=== PATIENT | female | born 1955 | race African-American/Black ===

== ENCOUNTER 2018-03-25 05:12 | Inpatient (IN) ==
[2018-03-25] MEDS ORDERED: Metoprolol Tartrate 25 MG Tablet PO SCH (05:45)
[2018-03-25] MEDS ORDERED: Chlorhexidine Gluconate 2% 1 Pack (2 Cloths) TOPICAL SCH (05:45)
[2018-03-25] MEDS ORDERED: Sodium Chlor 0.9% Inj 500 ML IV.SIG SCH (06:00)
[2018-03-25] MEDS ORDERED: ceFAZolin 2 GM Premix Inj 2 GM/50 ML PIGGYBACK IV.SIG ONE (06:44)
[2018-03-25] MEDS ORDERED: Bupivacaine PF 0.5% Inj 30 ML Vial ONE (06:46)
[2018-03-25] MEDS ORDERED: fentaNYL Citrate Inj 250 MCG/5 ML Ampul ONE (08:55)
[2018-03-25] MEDS ORDERED: Acetaminophen 325 MG Tablet PO PRN (09:32)
[2018-03-25] MEDS ORDERED: Bisacodyl 10 MG Supp RECTAL PRN (09:32)
[2018-03-25] MEDS ORDERED: Post-op Orders (for Pharmacy) OTHER STA (09:32)
--- NOTE | 2018-03-25 09:46 | P.OP ---
Date of procedure: 03/25/18 Anesthesia: GETA Surgeon: Treva Jolley MD Operation and Findings: PREOPERATIVE DIAGNOSES 1. Right upper lobe lung infiltrative mass 2. Pneumonia 3. Diabetes mellitus POSTOPERATIVE DIAGNOSES Same SURGICAL PROCEDURE 1. Right Video-Assisted Thoracoscopic Surgery (VATS). 2. Wedge biopsy of right upper lobe lung mass 3. Intercostal Nerve Block SURGEON Treva Jolley MD UNDERGROUND MINE SUPERINTENDENT Citlalli Lee [facility] ANESTHESIA General double lumen endotracheal. ROAD MACHINE OPERATOR TAHMINA Beck MD PREPARATION ChloraPrep. COUNTS Needle, sponge, and instrument counts are correct. DRAINS One 28 Fr chest tube. COMPLICATIONS None. INDICATIONS The patient is a 62 yo female with a right upper lobe pneumonia and persistent infiltrative mass, presenting for surgical diagnostic procedure. DESCRIPTION OF PROCEDURE The patient was brought to the operating room and placed supine on the OR table. Following the induction of adequate general double lumen endotracheal anesthesia and placement of appropriate monitoring devices, the patient was placed in the left lateral decubitus position. The right chest and surrounding areas were then prepped and draped in a standard sterile fashion. A 5 mm camera port was introduced into the 7th intercostal space in mid axillary line, and the camera introduced. A second 5 mm port was then placed anteriorly under direct visual guidance, and similarly one was placed posteriorly. Exploration of the chest revealed a very friable, bullous and infiltrative mass in the anterior segment of the right upper lobe. No additional pathology was identified. The mass was grasped and a wedge biopsy performed using the surgical stapler. Frozen section analysis was consistent with a benign pathology. The mass appeared to have fatty infiltrates with an associated proliferative inflammatory response. No malignant cells were identified. At this point the closure was undertaken. The anterior port was removed and a 28 Fr chest tube was placed in the pleural space. This was maintained in place with a nonabsorbable suture. All of the entry sites were injected with Marcaine 0.5%. Following confirmation of the drain in the proper place, the incisions were closed with 2 layers. The chest drain was attached to a suction device, and sterile dressing applied. Intercostal nerve block was performed using Marcaine solution. The patient tolerated the procedure well and was extubated and transferred to the recovery room in stable condition.
[2018-03-25] MEDS ORDERED: Sugammadex Inj 200 MG/2 ML Vial IV.PUSH ONE (09:57)
[2018-03-25] MEDS ORDERED: fentaNYL Citrate Inj 100 MCG/2 ML Ampul ONE (10:15)
[2018-03-25] MEDS ORDERED: *Meperidine Inj 25 MG/ML Vial PERIprocedural Use ONLY ONE (10:27)
[2018-03-25] MEDS ORDERED: Ketorolac Inj 30 MG/ML (IVP) Vial ONE (10:28)
--- NOTE | 2018-03-25 10:51 | XR ---
EXAM DATE: 03/25/2018 10:47 AM EDT AGE/SEX: 62 years / Female INDICATIONS: Post op thoracotomy. CLINICAL DATA: This is the patient's initial encounter. Patient reports that signs and symptoms have been present for 1 day and indicates a pain score of 10/10. MEDICAL/SURGICAL HISTORY: None. . Chest tube. COMPARISON: No prior exams available for comparison. FINDINGS: Right apical chest tube in place without significant pneumothorax. Right upper lobe paratracheal mass like consolidation. Cardiomegaly saw contours are within normal limits. Bony thorax is grossly intact . CONCLUSION: 1. Right apical chest tube in place without significant pneumothorax. 2. Right upper lobe paratracheal masslike consolidation. Electronically signed by: Roque Rodriguez MD 03/25/2018 10:49 AM EDT
[2018-03-25] MEDS ORDERED: Glycopyrrolate Inj 1 MG/5 ML Syringe IV.PUSH ONE (12:00)
[2018-03-25] MEDS ORDERED: Neostigmine Inj 5 MG/5 ML Syringe IV.PUSH ONE (12:00)
[2018-03-25] MEDS ORDERED: Labetalol HCl Inj 100 MG/20 ML Vial IV.CONT ONE (12:00)
[2018-03-25] MEDS ORDERED: Lidocaine PF 1% Inj 5 ML Syringe INFILTRATN ONE (12:00)
[2018-03-25] MEDS ORDERED: *morphine SULFATE 4 MG/ML PERIprocedure ONLY ONE ×3 (12:11→14:54)
[2018-03-25] MEDS: Ketorolac Inj 30 MG/ML (IVP) Vial IV.PUSH SCH ×3 (13:50→23:13)
[2018-03-25] MEDS: Methocarbamol 500 MG Tablet PO SCH ×3 (13:53→21:26)
[2018-03-25] MEDS: Gabapentin 300 MG Capsule PO SCH ×2 (13:53→19:24)
--- NOTE | 2018-03-25 15:03 | P.PNCV ---
- Note Subjective/Hospital Course: 62/ female initially presented with cough and chills in November . Workup included CXR, Chest CT , BX demonstrated a large infiltration right upper lobe, bx nop malignancy . Area of concern persists on CT PMH: anxiety, DM HLP, HTN pt electively admitted surgery 03/25 1. Right Video-Assisted Thoracoscopic Surgery (VATS). 2. Wedge biopsy of right upper lobe lung mass 3. Intercostal Nerve Block Objective: Vital Signs - 24 hr 03/25/18 06:16 03/25/18 10:06 03/25/18 10:15 Temperature 98.2 F 97.4 F L Pulse Rate 70 84 73 Respiratory Rate 18 14 18 Blood Pressure 157/85 H 146/96 H 173/91 H Pulse Oximetry 96 98 98 03/25/18 10:30 03/25/18 10:45 03/25/18 11:00 Temperature Pulse Rate 66 66 65 Respiratory Rate 15 12 12 Blood Pressure 168/96 H 148/80 H 139/85 Pulse Oximetry 98 96 96 03/25/18 12:00 03/25/18 13:00 03/25/18 13:46 Temperature Pulse Rate 71 72 Respiratory Rate 12 13 Blood Pressure 138/76 130/73 Pulse Oximetry 95 97 96 Labs: Laboratory Results - last 12 hr 03/25/18 03/25/18 03/25/18 06:10 06:45 10:50 POC Glucose 250 H Blood Type B Positive Blood Type Recheck Required Antibody Screen Negative MTS Gel Crossmatch See Detail
[2018-03-25] MEDS: Mirtazapine 15 MG Tablet PO SCH (21:25)
[2018-03-25] MEDS: Senna/Docusate Sodium 8.6/50 MG Tablet PO SCH (21:25)
[2018-03-25] MEDS: Latanoprost 0.005% Opth Drops 2.5 ML Bottle EACH EYE SCH (21:27)
[2018-03-26 04:21] LABS: Baso % (Auto) 0.4 % (0.0-2.0); Hematocrit 39.6 % (35.0-46.0); Hemoglobin 12.5 gm/dL (11.6-15.3); Lymph # (Auto) 1.8 th/mm3 (1.0-4.8); Lymph % (Auto) 15.2 % (9.0-44.0); Mean Corpuscular HGB Conc 31.5 % (32.0-36.0); Mean Corpuscular Hemoglobin 23.2 pg (27.0-34.0); Mean Corpuscular Volume 73.7 fL (80.0-100.0); Mean Platelet Volume 8.8 fL (7.0-11.0); Mono # (Auto) 0.9 th/mm3 (0.0-0.9); Mono % (Auto) 7.9 % (0.0-8.0); Neut # (Auto) 8.8 th/mm3 (1.8-7.7); Neut % (Auto) 76.5 % (16.0-70.0); Platelet Count 297 th/mm3 (150-450); Red Blood Count 5.38 mil/mm3 (4.00-5.30); Red Cell Distribution Width 16.3 % (11.6-17.2); White Blood Count 11.6 th/mm3 (4.0-11.0)
[2018-03-26 04:38] LABS: Calcium 8.9 mg/dL (8.5-10.1); Potassium 4.1 meq/L (3.5-5.1)
[2018-03-26] MEDS: Ketorolac Inj 30 MG/ML (IVP) Vial IV.PUSH SCH (06:09)
[2018-03-26] MEDS: Atenolol 25 MG Tablet PO SCH (08:23)
[2018-03-26] MEDS: Gabapentin 300 MG Capsule PO SCH ×3 (08:24→21:30)
[2018-03-26] MEDS: Enoxaparin Inj 30 MG/0.3 ML Syringe SQ SCH (08:25)
[2018-03-26] MEDS: Methocarbamol 500 MG Tablet PO SCH ×4 (08:26→21:30)
[2018-03-26] MEDS: Senna/Docusate Sodium 8.6/50 MG Tablet PO SCH ×2 (08:27→21:30)
[2018-03-26 08:43] VITALS: RESP 16
[2018-03-26] MEDS ORDERED: EMPAGLIFLOZIN 25 MG PO SCH (09:00)
[2018-03-26] MEDS ORDERED: Ezetimibe 10 MG Tablet PO SCH ×2 (09:00→18:00)
--- NOTE | 2018-03-26 09:54 | XR ---
EXAM DATE: 03/26/2018 9:46 AM EDT AGE/SEX: 62 years / Female INDICATIONS: Post op VATS CLINICAL DATA: This is the patient's initial encounter. Patient reports that signs and symptoms have been present for 2 days and indicates a pain score of 0/10. MEDICAL/SURGICAL HISTORY: . mitral valve prolapse . thoracotomy, chest tube COMPARISON: C, CHEST 1V SINGLE AP, 03/25/2018. . FINDINGS: Stable right apical chest tube in place. No significant pneumothorax. Redemonstration of right suprah ilar mass with platelike atelectasis at the left lung base. Cardiomediastinal contours are stable. Re mainder of the exam is unchanged. CONCLUSION: 1. Stable right apical chest tube without significant pneumothorax. 2. Redemonstration of right suprahilar mass. 3. Stable left lower lobe atelectasis. Electronically signed by: Roque Rodriguez MD 03/26/2018 9:53 AM EDT
[2018-03-26] MEDS ORDERED: Morphine Sulfate Inj 2 MG/ML Vial IV.PUSH ONE (09:58)
[2018-03-26] MEDS: hydroCHLOROthiazide 25 MG Tablet PO SCH (10:33)
[2018-03-26] MEDS ORDERED: Ketorolac Inj 30 MG/ML (IVP) Vial IV.PUSH SCH (12:00)
[2018-03-26] MEDS ORDERED: Dextrose 50% in Water 50 ML Vial IV.PUSH PRN (13:59)
--- NOTE | 2018-03-26 14:03 | P.PNCV ---
- Note Subjective/Hospital Course: 62/ female initially presented with cough and chills in November . Workup included CXR, Chest CT , BX demonstrated a large infiltration right upper lobe, bx nop malignancy . Area of concern persists on CT PMH: anxiety, DM HLP, HTN pt electively admitted surgery 03/25 1. Right Video-Assisted Thoracoscopic Surgery (VATS). 2. Wedge biopsy of right upper lobe lung mass 3. Intercostal Nerve Block 03/26 doing well c chest tube dc without difficulty wants to go home in am CXR pending in am pt has RX for pain at home no pain meds dispensed plan dc in am Objective: Vital Signs - 24 hr 03/25/18 15:00 03/25/18 15:41 03/25/18 15:43 Temperature 97.9 F Pulse Rate 83 77 Respiratory Rate 14 14 Blood Pressure 135/77 143/78 H Pulse Oximetry 96 97 97 03/25/18 16:00 03/25/18 19:45 03/25/18 20:00 Temperature 99.4 F Pulse Rate 92 H 80 Respiratory Rate 18 18 Blood Pressure 133/75 139/76 Pulse Oximetry 98 96 03/25/18 21:00 03/25/18 21:28 03/25/18 22:00 Temperature Pulse Rate 85 84 Respiratory Rate 19 Blood Pressure Pulse Oximetry 03/25/18 23:10 03/26/18 00:00 03/26/18 01:19 Temperature 98.2 F Pulse Rate 80 76 81 Respiratory Rate 19 Blood Pressure 134/71 Pulse Oximetry 93 L 03/26/18 02:00 03/26/18 03:23 03/26/18 03:45 Temperature 98.5 F Pulse Rate 72 76 78 Respiratory Rate 18 Blood Pressure 133/76 Pulse Oximetry 93 L 03/26/18 04:45 03/26/18 05:39 03/26/18 06:00 Temperature Pulse Rate 80 71 72 Respiratory Rate Blood Pressure Pulse Oximetry 03/26/18 07:00 03/26/18 08:00 03/26/18 09:00 Temperature 98.4 F Pulse Rate 79 80 76 Respiratory Rate 16 Blood Pressure 145/82 H Pulse Oximetry 96 03/26/18 10:00 03/26/18 11:00 03/26/18 12:00 Temperature 98.4 F Pulse Rate 74 70 69 Respiratory Rate 16 Blood Pressure 164/96 H Pulse Oximetry 95 GENERAL: A&O x 3 SKIN: Warm and dry. incision intact to posterior chest wall HEAD: Normocephalic. EYES: No scleral icterus. No injection or drainage. NECK: Supple, trachea midline. No JVD or lymphadenopathy. CARDIOVASCULAR: Regular rate and rhythm without murmurs, gallops, or rubs. RESPIRATORY: Breath sounds equal bilaterally. No accessory muscle use. GASTROINTESTINAL: Abdomen soft, non-tender, nondistended. MUSCULOSKELETAL: No cyanosis, or edema. BACK: Nontender without obvious deformity. No CVA tenderness. Labs: Laboratory Results - last 12 hr 03/26/18 03/26/18 03/26/18 04:02 04:02 06:15 WBC 11.6 H RBC 5.38 H Hgb 12.5 Hct 39.6 MCV 73.7 L MCH 23.2 L MCHC 31.5 L RDW 16.3 Plt Count 297 MPV 8.8 Neut % (Auto) 76.5 H Lymph % (Auto) 15.2 [place] % (Auto) 7.9 Eos % (Auto) 0.0 Baso % (Auto) 0.4 Neut # (Auto) 8.8 H Lymph # (Auto) 1.8 [place] # (Auto) 0.9 Eos # (Auto) 0.0 Baso # (Auto) 0.0 WBC Differential . Differential Comment Auto diff final Sodium 141 Potassium 4.1 Chloride 106 Carbon Dioxide 28.0 Anion Gap 7 BUN 18 Creatinine 0.99 Estimated GFR 69 L POC Glucose 149 H Random Glucose 150 H Calcium 8.9 03/26/18 12:24 WBC RBC Hgb Hct MCV MCH MCHC RDW Plt Count MPV Neut % (Auto) Lymph % (Auto) [place] % (Auto) Eos % (Auto) Baso % (Auto) Neut # (Auto) Lymph # (Auto) [place] # (Auto) Eos # (Auto) Baso # (Auto) WBC Differential Differential Comment Sodium Potassium Chloride Carbon Dioxide Anion Gap BUN Creatinine Estimated GFR POC Glucose 241 H Random Glucose Calcium Result Diagrams: 03/26/18 04:02 03/26/18 04:02 - Plan (3) S/P thoracotomy Plan: chest tube dc, for dc in am appointment with Dr Jolley in 2 weeks to discuss path
[2018-03-26] MEDS: Latanoprost 0.005% Opth Drops 2.5 ML Bottle EACH EYE SCH (17:52)
[2018-03-26] MEDS: Insulin NovoLOG Aspart Correctional Sugar Inj SQ SCH ×2 (17:56→21:31)
[2018-03-26] MEDS: Mirtazapine 15 MG Tablet PO SCH (21:30)
--- NOTE | 2018-03-27 06:14 | XR ---
EXAM DATE: 03/27/2018 4:46 AM EDT AGE/SEX: 62 years / Female INDICATIONS: Chest tube removal. CLINICAL DATA: This is the patient's subsequent encounter. Patient reports that signs and symptoms h ave been present for 3 days and indicates a pain score of 4/10. MEDICAL/SURGICAL HISTORY: Cardiovascular disease. CABG. COMPARISON: C, CHEST 1V SINGLE AP, 03/26/2018. . FINDINGS: Slight improvement in the linear atelectasis left lower lung. There is still a portion of the lateral left hemidiaphragm which is partially obscured. The right lung is clear. Stable right suprahilar mas s. The heart is normal in size. CONCLUSION: 1. No evidence of pneumothorax status post right chest tube removal. 2. Improving left basilar atelectasis. 3. Stable right suprahilar mass. Electronically signed by: Greyson Taylor MD 03/27/2018 6:13 AM EDT
[2018-03-27] MEDS: Insulin NovoLOG Aspart Correctional Sugar Inj SQ SCH ×2 (07:53→11:59)
[2018-03-27] MEDS: Senna/Docusate Sodium 8.6/50 MG Tablet PO SCH (09:50)
[2018-03-27] MEDS: Methocarbamol 500 MG Tablet PO SCH ×2 (09:50→11:59)
[2018-03-27] MEDS: Atenolol 25 MG Tablet PO SCH (09:51)
[2018-03-27] MEDS: Enoxaparin Inj 30 MG/0.3 ML Syringe SQ SCH (09:51)
[2018-03-27] MEDS: hydroCHLOROthiazide 25 MG Tablet PO SCH (09:51)
[2018-03-27] MEDS: Gabapentin 300 MG Capsule PO SCH (09:55)
--- NOTE | 2018-03-27 11:08 | P.DCO ---
- Diagnosis (2) Pneumonia - Physical Therapy Order: Evaluate and treat, Improve ambulation - Occupational Therapy Order: Evaluate and treat - Home Health Nursing Order: Medical education, Signs/symptoms of disease process, Nursing assessment with vital signs - Case Management Consult Yes - Certification I have seen patient Sheba Gtz on 03/27/18. My clinical findings support the need for the requested home health care services because: Deconditioned with increased weakness, Limited ability to care for self I certify that my clinical findings support that this patient is homebound because: Post-op weakness (2) Pneumonia Qualifiers: Pneumonia type: due to unspecified organism Laterality: unspecified laterality Lung location: unspecified part of lung Qualified Code(s): J18.9 - Pneumonia, unspecified organism
--- NOTE | 2018-03-27 11:14 | P.DS ---
Date of admission: 03/25/18 05:12 Primary care physician: No Primary Care Physician Attending physician on discharge: Treva Jolley Anticipated date of discharge: 03/27/18 Brief History from admission: 62y/o female presents with a suspicious right upper lobe mass for resection. DS: Diagnosis - Discharge Diagnosis (1) Lung mass Status: Acute (2) Pneumonia Status: Acute (3) S/P thoracotomy Status: Acute DS: Summary Hospital Course: Patient underwent thoracoscopic excisional biopsy RUL mass on 03/25/18. Postop course was uncomplicated with chest tube removed on 03/26/18. - Time Spent with Patient Total time spent providing and/or coordinating discharge services: Greater than 30 minutes - Quality: AMI Clinical Trial Participant: No - Quality: Stroke Symptom Onset Unknown: No - Quality: VTE Deep Vein Thrombosis/Pulmonary Embolism Present on Admission: No Exam Vital signs: Vital Signs 03/26/18 12:00 03/26/18 13:00 03/26/18 14:00 Temperature Pulse Rate 69 76 69 Respiratory Rate Blood Pressure Pulse Oximetry 03/26/18 15:00 03/26/18 16:00 03/26/18 17:00 Temperature 97.7 F Pulse Rate 74 69 73 Respiratory Rate 16 Blood Pressure 144/79 H Pulse Oximetry 95 03/26/18 18:00 03/26/18 19:40 03/26/18 20:00 Temperature 99.0 F Pulse Rate 75 73 74 Respiratory Rate 20 Blood Pressure 135/79 Pulse Oximetry 99 03/26/18 21:00 03/26/18 22:00 03/26/18 23:00 Temperature Pulse Rate 80 85 78 Respiratory Rate Blood Pressure Pulse Oximetry 03/26/18 23:30 03/27/18 00:22 03/27/18 01:29 Temperature 98.1 F Pulse Rate 78 75 73 Respiratory Rate 19 Blood Pressure 153/87 H Pulse Oximetry 97 03/27/18 02:58 03/27/18 03:15 03/27/18 04:48 Temperature 98.4 F Pulse Rate 75 77 73 Respiratory Rate 20 Blood Pressure 161/91 H Pulse Oximetry 94 L 03/27/18 05:12 03/27/18 06:01 03/27/18 07:00 Temperature 99.2 F Pulse Rate 77 77 90 Respiratory Rate 16 Blood Pressure 149/81 H Pulse Oximetry 95 03/27/18 08:00 03/27/18 09:00 03/27/18 10:00 Temperature Pulse Rate 79 79 81 Respiratory Rate Blood Pressure Pulse Oximetry Intake & Output 03/26/18 03/27/18 03/27/18 18:59 06:59 18:59 Intake Total 900 / 900 240 / 240 Output Total 900 / 900 800 / 800 Balance 0 / 0 -560 / -560 Weight 91 kg Intake: Oral 900 / 900 240 / 240 Output: Urine 900 / 900 800 / 800 Other: Date of Last Bowel Movement 03/26/18 # Bowel Movements 0 - Constitutional no acute distress - Routine HEENT Exam Head: Present: normocephalic, atraumatic Eye: Present: EOMI, PERRL, normal accommodation - Routine Neck Exam Present: supple - Routine Respiratory Exam Present: CTA bilaterally - Routine Cardiovascular Exam Present: RRR - Routine Abdominal Exam Present: soft, normoactive bowel sounds - Routine Skin Exam Present: intact - Routine Neurological Exam Present: alert, oriented X3, CN II-XII intact Results Procedures completed during hospitalization: Right VATS excisional biopsy RUL mass Pending studies at discharge: Final PATH pending Labs on day of discharge: Labs from last 24 hours 03/27/18 03/26/18 03/26/18 07:51 20:08 17:13 POC Glucose 187 H 247 H 194 H 03/26/18 12:24 POC Glucose 241 H Preliminary micro results at discharge 03/25/18 08:01 Wound Culture - Preliminary Wound - Lung No growth in 48 hours - Impressions ITS Impressions Chest X-Ray 03/27/18 06:00 CONCLUSION: 1. No evidence of pneumothorax status post right chest tube removal. 2. Improving left basilar atelectasis. 3. Stable right suprahilar mass. Discharge Plan - Discharge Disposition Patient Disposition: Disch W/Home Health Service - Discharge Condition Condition: Good - Discharge Order Discharge Orders: Discharge Order (Routine); Ordered 03/27/18 Ordered By: Elisa Dow - Discharge Details Anticipated Discharge Date: 03/27/18 Discharge Comment: after seen by Dr barrow - Physicians Team Primary Care Provider: Primary Care Seaed,Aruna Attending Provider: Treva Jloley - Rxs /Orders / Referrals /Forms Prescriptions: Continue albiglutide [Tanzeum] 50 mg/0.5 mL Pen Injector 50 mg SUB-Q Q7D alprazolam [Xanax] 1 mg Tablet 1 mg PO BID PRN (Reason: Anxiety) atenolol 25 mg Tablet 50 mg PO DAILY empagliflozin [Jardiance] 25 mg Tablet 25 mg PO DAILY ezetimibe [Zetia] 10 mg Tablet 10 mg PO DAILY gabapentin 300 mg Capsule 300 mg PO TID hydrocodone-acetaminophen 5-325 mg Tablet 1 tab PO TID PRN (Reason: Pain) latanoprost 0.005 % Drops 1 drp OPHTHALMIC (EYE) QPM methocarbamol [Robaxin] 500 mg Tablet 500 mg PO QID mirtazapine 45 mg Tablet 45 mg PO DAILY olmesartan-hydrochlorothiazide 20-12.5 mg Tablet 2 tab PO DAILY simvastatin 40 mg Tablet 40 mg PO QPM Referrals: ERNA Ochoa [Other] - See Instructions ( Your appointment has been scheduled for [04/05/18] at [10:30 AM] If you cannot make this appointment, please call the office to reschedule ) PATITO VINSON DR [Other] - See Instructions ( Please call the physician's office to book the appointment to be seen within [2 WEEKS OF DISCHARGE].) Treva Jolley MD [Physician] - See Instructions ( Your appointment has been scheduled for [04/13/18] at [1:00 pm] If you cannot make this appointment, please call the office to reschedule ) - Discharge Instructions Patient Printed Instructions: Heart Healthy Diet (DC) Additional Instructions: 1.Incentive spirometry Q1 hr x 10, while awake, also use acapella device hourly whole 2.Chest wall precautions: NO pushing or pulling, ( pt must use chest pillow support chest with all activities and with coughing 3.Daily incision care: ok to shower ( 48hrs after chest tube removed) and then daily, no tub bath. Wash all incisions with liquid dial soap, clean wash cloth to each site, rinse and pat dry. Observe for any signs of infection, such as drainage which is dark yellow, anaya, green or foul smelling. Immediately report to the surgeon any drainage from the chest incision, or legs, and for any abnormal drainage from the chest tube sites. Notify surgeon if any temp > 101.5 degrees F. When specialty dressing removed/ or if you do not have one, continue to shower daily as above, then rinse and pat incision dry and paint with betadine daily x 5 days. Allow steri strips to fall off if you have any. Avoid lotions, creams, salves, oils, etc. for the first month 4.For Dr. Barrow patients , please obtain PA & Lat CXR in 2 weeks, results to Dr. Barrow ( prescription will be given) ( ) (Tele: ) , 5.F/U appointment: as per [place] instructions: PCP in 2 weeks, CV surgeon 2 weeks, [place] Administrator 3-4 weeks 6.For any questions regarding incisions/ dressing / meds / post op care or above Symptoms, 7.Thursday 8am-5pm Heart & Vascular Surgery Office ( Dr. Jolley & Dr. Barrow), 8.After Hours / Nights (5pm -8am) Weekends and Holidays Please call [facility] ([facility]) Charge Nurse 9.HOME HEALTH CARE HAS BEEN ARRANGED FOR THIS PATIENT WITH 'S CHOICE, CONTACT # [phone] 10 no bending or heavy lifting more than a gallon of juice,
[2018-03-30 17:54] VITALS: PULSE 77
[2018-03-30 17:59] VITALS: BP 144/79; O2SAT 95
[2018-03-30 18:24] VITALS: TEMP 99
== END 2018-03-27 12:53 | disposition home health service (06) ==
LOC: HSDI 05:12 → HCPC 16:38
PROVIDERS: ADMIT Thoracic Surgery (Cardiothoracic Vascular Surgery); ATTEND Thoracic Surgery (Cardiothoracic Vascular Surgery)